=== PATIENT | male | born 2000 | race Caucasian/White ===

== ENCOUNTER 2023-01-17 11:50 | Outpatient (CLI) | payer MEDICAID, SELFPAY ==
--- NOTE | 2023-01-17 12:10 | XR_ITS ---
WS: [id number] XR shoulder LT min 2V* [id number] REASON FOR EXAM: TENDINOPATHY OF ROTATOR CUFF, LEFT FINDINGS: Acromioclavicular joint and glenohumeral joints are intact with joint spaces well-preserved. No fracture or focal bone lesion. No soft tissue abnormality. XR/XR shoulder LT min 2V* [id number] IMPRESSION: No significant abnormality.
== END 2023-01-17 11:51 | disposition home or self-care (01) ==
LOC: RAD 12:02
PROVIDERS: PCP Nurse Practitioner Family; Visit Provider Nurse Practitioner Family
DX: M67.912 Unspecified disorder of synovium and tendon, left shoulder (principal)
CPT/HCPCS: 73030

== ENCOUNTER 2023-03-18 07:03 | Outpatient (CLI) | payer MEDICAID, SELFPAY ==
--- NOTE | 2023-03-18 07:17 | MR_ITS ---
WS: [id number] MRI SHOULDER HISTORY: TENDINOPATHY OF ROTATOR CUFF, LEFT COMPARISON: LEFT shoulder radiograph 01/17/2023 TECHNIQUE: Multiplanar sequences of the shoulder joint are submitted. Normal AC joint with mild subacromial impingement. No os acromion and the biceps tendon is in normal position. Normal biceps tendon. No subacromial or subdeltoid bursal fluid. No rotator cuff muscle atrophy or edema. Minimal amount of increased T2 signal in the distal supraspi natus tendon. No rotator cuff tear. No significant fluid in the axillary pouch. No significant narrow ing of the glenohumeral joint. Normal labrum. MR/MR shoulder LT wo con* [id number] IMPRESSION: 1. Minimal distal supraspinatus tendinopathy. 2. Normal AC joint. 3. No joint effusion.
== END 2023-03-18 07:04 | disposition home or self-care (01) ==
LOC: RAD 07:05
PROVIDERS: PCP Nurse Practitioner Family; Visit Provider Nurse Practitioner Family
DX: M67.912 Unspecified disorder of synovium and tendon, left shoulder (principal)
CPT/HCPCS: 73221